=== PATIENT | female | born 1985 | race Caucasian/White ===

== ENCOUNTER 2016-08-01 07:22 | Emergency (ER) | payer MEDICAID ==
[~2016-08-01] VITALS: Ht 175.3 cm; Wt 127.0 kg
[~2016-08-01 07:22] MED LIST: CITA20 PO; EPIP0.3I IM; HYDR25R PR; STOO100C PO
[2016-08-01 07:27] VITALS: BP 132/91; PULSE 96; RESP 18; TEMP 98.5; O2SAT 100
[2016-08-01] MEDS ORDERED: LIDO1PAD52 TOPICAL (07:45)
[2016-08-01] MEDS ORDERED: INHALER (07:45)
[2016-08-01] MEDS ORDERED: CELE20TA PO (07:45)
[2016-08-01] MEDS ORDERED: KETOROLAC TROMETHAMINE 60 MG/2 ML (IM) VIAL IM ONE (07:45)
[2016-08-01] MEDS ORDERED: HYDR-3533 PO (07:46)
--- NOTE | 2016-08-01 07:53 | PD ---
HPI Chief Complaint: Back/ Neck Pain or Injury Time Seen by Provider: 07:32 Travel History International Travel<30 days: No Contact w/Intl Traveler<30days: No Traveled to known affect area: No History of Present Illness HPI 31 year-old female notes left sided mid back pain that is been present over the past couple of days. She states she has history of low back pain and has had MRIs in the past. Quality of pain is cramping. Severity is severe per patient. She states her primary care physician has worked on getting her in for possible surgery but she has had issues with her insurance. She states that she has not had any recent trauma, incontinence, weakness, numbness, abdominal pain or other emergent symptoms. She states her last menstrual cycle was at the beginning of the month and she is overdue for a Depo-Provera shot. She states that pain is worse with movement. She denies other modifying factors. She states that this is higher than her usual pain. PFSH Past Medical History Asthma: Yes Bipolar Disorder: Yes Anxiety: Yes Depression: Yes Cardiovascular Problems: Yes (HTN) Diabetes: No Diminished Hearing: Yes (left ear) GERD: Yes Gout: No Hypertension: Yes Musculoskeletal: Yes (CHRONIC BACK PAIN) Immunizations Current: Yes Migraines: Yes Tetanus Vaccination: < 5 Years Influenza Vaccination: No ?: Unknown : 6 Para: 1 Miscarriage: 3 : 2 Ovarian Cysts: Yes Past Surgical History Section: Yes Social History Alcohol Use: No Tobacco Use: Yes (/ PPD) Substance Use: Yes (MARIJUANA DAILY) Allergies-Medications (Allergen,Severity, Reaction): Coded Allergies: Azithromycin (Verified Allergy, Severe, throat swelling, 08/01/16) Codeine (Verified Allergy, Severe, Hives, 08/01/16) Percocet (Verified Allergy, Severe, Hives, 08/01/16) Tramadol (Verified Allergy, Severe, GETS VIOLENT, 08/01/16) Penicillin (Verified Adverse Reaction, Severe, NOSE BLEEDS, 08/01/16) Flynn (Verified Adverse Reaction, Mild, GI UPSET, 08/01/16) Reported Meds & Prescriptions Reported Meds & Active Scripts Active Skelaxin (Metaxalone) 800 Mg Tab 800 Mg PO HS PRN Reported Lortab (Hydrocodone-Acetaminophen) 5-325 Mg Tab Unknown Dose PO DIRECTED PRN [Inhaler] Lidocaine Patch 12 HR (Lidocaine) 5 % Patch 1 Patch TOPICAL DAILY PRN Remove patch after 12 hours Celexa (Citalopram Hydrobromide) 20 Mg Tab 20 Mg PO DAILY Review of Systems Except as stated in HPI: all other systems reviewed are Neg Physical Exam Narrative GENERAL: Well-nourished, well-developed patient. Uncomfortable SKIN: Warm and dry. HEAD: Normocephalic and atraumatic. EYES: No injection or drainage. ENT: No nasal drainage noted. NECK: Supple, trachea midline. CARDIOVASCULAR: Regular rate and rhythm RESPIRATORY: Breath sounds equal bilaterally. No accessory muscle use. GASTROINTESTINAL: Abdomen soft, non-tender, nondistended. EXTREMITIES: No edema. BACK: Nontender without obvious deformity in midline, no CVA tenderness, left sided lumbar paraspinal tenderness. NEUROLOGICAL: Awake and alert. Motor and sensory grossly within normal limits. Normal speech. Data Data Last Documented VS Vital Signs Date Time Temp Pulse Resp B/P Pulse Ox O2 Delivery O2 Flow Rate FiO2 08/01/16 07:43 08/01/16 07:27 98.5 96 18 100 Room Air Orders Urinalysis - C+S If Indicated (08/01/16 07:37) Ed Urine Pregnancytest Poc (08/01/16 07:37) Ketorolac Inj (Toradol Inj) (08/01/16 07:45) Orphenadrine Inj (Norflex Inj) (08/01/16 08:30) Labs Laboratory Tests Test 08/01/16 07:50 Urine Collection Type CLEAN CATCH Urine Color YELLOW Urine Turbidity CLOUDY Urine pH 6.0 Urine Specific [place] 1.023 Urine Protein TRACE mg/dL Urine Glucose (UA) NEG mg/dL Urine Ketones TRACE mg/dL Urine Occult Blood TRACE Urine Nitrite NEG Urine Bilirubin NEG Urine Leukocyte Esterase TRACE Urine RBC 0-3 /hpf Urine WBC 0-2 /hpf Urine Squamous Epithelial 0-5 /hpf Cells Urine Amorphous Sediment FEW Microscopic Urinalysis Comment CULT NOT INDICATED MDM Medical Decision Making Medical Screen Exam Complete: Yes Emergency Medical Condition: Yes Medical Record Reviewed: Yes (past history confirmed) Interpretation(s) UA without UTI, test negative Differential Diagnosis Strain, UTI, cyst, , stone Narrative Course Will check urinalysis, beta and dose with Toradol and reevaluate; patient agrees to workup as ordered ED workup without emergent process, patient with mild relief will dose with Norflex, Patient denies any new complaints, all questions answered. Patient knows that follow up is incumbent on them and to return to the emergency room immediately if new or worsening symptoms develop. Patient given strict return precautions, vitals reviewed and are normal, agrees to further workup as an outpatient. Diagnosis Primary Impression: Back pain Qualified Code: M54.5 - Acute left-sided low back pain without sciatica Patient Instructions: General Instructions Additional Instructions: Return as stated, alternate Motrin and Tylenol with muscle relaxant, follow with primary this week Med/Other Pt SpecificInfo: Prescription(s) given Scripts Metaxalone (Skelaxin)800 Mg Poq905 Mg PO HS PRN (PAIN SCALE 1 TO 10) #10 TAB Prov:Sindhu Batista MD 08/01/16 Disposition: 01 DISCHARGE HOME Condition: Stable Sindhu Batista MD Aug 01, 2016 07:53
[2016-08-01 08:00] LABS: BLOOD, URINE TRACE (NEG); GLUCOSE,URINE NEG (NEG); KETONE, URINE TRACE mg/dL (NEG); NITRITE,URINE NEG (NEG)
[2016-08-01 08:01] LABS: METHOD OF COLLECTION CLEAN CATCH; URINE COLOR YELLOW (YELLW/STRAW)
[2016-08-01 08:05] LABS: RBC, URINE 0-3 /hpf (0-3); SQUAMOUS EPITHELIAL CELL URINE 0-5 /hpf (0-5); WBC, URINE 0-2 /hpf (0-5)
[2016-08-01 08:06] LABS: COMMENT (UR) CULT NOT INDICATED; COMMENT2 (UR) MUCOUS PRESENT; CULTURE IF INDICATED CULT NOT INDICATED
[2016-08-01] MEDS ORDERED: META800T81 PO (08:18)
[2016-08-01] MEDS ORDERED: ORPHENADRINE INJ 60 MG/2 ML AMP IM ONE (08:30)
== END 2016-08-01 09:02 | disposition home or self-care (01) ==
LOC: PHED 07:22
DX: M54.5 Low back pain (principal); J45.909 Unspecified asthma, uncomplicated; I10 Essential (primary) hypertension; K21.9 Gastro-esophageal reflux disease without esophagitis; F17.210 Nicotine dependence, cigarettes, uncomplicated
CPT/HCPCS: 81001; 84703; 96372; 99283; J1885; J2360

== ENCOUNTER 2017-02-06 09:32 | Emergency (ER) | payer MEDICAID ==
[~2017-02-06 09:32] MED LIST changes: +CELE20TA PO; -CITA20 PO; -EPIP0.3I IM; +HYDR-3533 PO; -HYDR25R PR; +INHALER; +LIDO1PAD52 TOPICAL; +META800T81 PO; -STOO100C PO
[2017-02-06 09:43] VITALS: BP 129/68; PULSE 86; RESP 15; TEMP 98.4; O2SAT 98
[2017-02-06] MEDS ORDERED: ZOFR4TAB3 SL ×2 (10:13→10:14)
--- NOTE | 2017-02-06 10:13 | PD ---
HPI Chief Complaint: GI Complaint Time Seen by Provider: 10:05 Travel History International Travel<30 days: No Contact w/Intl Traveler<30days: No Traveled to known affect area: No History of Present Illness HPI This 32-year-old female complaining of occasional vomiting and diarrhea. This been going on for about a week. She has had C. difficile in the past. Her son right now has a similar illness. She also cut the back of her heel last night. She applied dilute to the wound. PFSH Past Medical History Asthma: Yes Bipolar Disorder: Yes Anxiety: Yes Depression: Yes Cardiovascular Problems: Yes (HTN) Diabetes: No Diminished Hearing: Yes (left ear) GERD: Yes Gout: No Hypertension: Yes Musculoskeletal: Yes (CHRONIC BACK PAIN) Immunizations Current: Yes Migraines: Yes ?: Not : 6 Para: 1 Miscarriage: 3 : 2 Ovarian Cysts: Yes Past Surgical History Section: Yes Social History Alcohol Use: No Tobacco Use: Yes (1/2 PPD) Substance Use: Yes (MARIJUANA DAILY) Allergies-Medications (Allergen,Severity, Reaction): Coded Allergies: azithromycin (Unverified Allergy, Severe, throat swelling, 02/06/17) codeine (Unverified Allergy, Severe, Hives, 02/06/17) oxycodone (Unverified Allergy, Severe, Hives, 02/06/17) tramadol (Unverified Allergy, Severe, GETS VIOLENT, 02/06/17) acetaminophen (Unverified Allergy, Mild, Hives, 02/06/17) DENIES penicillin G (Unverified Adverse Reaction, Severe, NOSE BLEEDS, 02/06/17) hydrocodone (Unverified Adverse Reaction, Mild, GI UPSET, 02/06/17) Reported Meds & Prescriptions Reported Meds & Active Scripts Active Skelaxin (Metaxalone) 800 Mg Tab 800 Mg PO HS PRN Reported Lortab (Hydrocodone-Acetaminophen) 5-325 Mg Tab Unknown Dose PO DIRECTED PRN [Inhaler] Lidocaine Patch 12 HR (Lidocaine) 5 % Patch 1 Patch TOPICAL DAILY PRN Remove patch after 12 hours Celexa (Citalopram Hydrobromide) 20 Mg Tab 20 Mg PO DAILY Review of Systems General / Constitutional: No: Fever, Chills Eyes: No: Diploplia HENT: No: Headaches Cardiovascular: No: Chest Pain or Discomfort Respiratory: No: Cough Gastrointestinal: Positive: Nausea, Diarrhea Genitourinary: No: Urgency, Frequency Skin: No Rash Neurologic: No: Weakness Hematologic/Lymphatic: No: Easy Bruising Physical Exam Narrative GENERAL: Well-developed female SKIN: Focused skin assessment warm/dry. HEAD: Atraumatic. Normocephalic. EYES: Pupils equal and round. No scleral icterus. No injection or drainage. ENT: No nasal bleeding or discharge. Mucous membranes pink and moist. NECK: Trachea midline. No JVD. CARDIOVASCULAR: Regular rate and rhythm. No murmur appreciated. RESPIRATORY: No accessory muscle use. Clear to auscultation. Breath sounds equal bilaterally. GASTROINTESTINAL: Abdomen soft, non-tender, nondistended. Hepatic and splenic margins not palpable. MUSCULOSKELETAL: No obvious deformities. No clubbing. No cyanosis. No edema. There is a 1 cm laceration of the posterior ankle overlying the Achilles tendon. She has good strength in plantar and dorsiflexion. Caldwell's test is normal NEUROLOGICAL: Awake and alert. No obvious cranial nerve deficits. Motor grossly within normal limits. Normal speech. PSYCHIATRIC: Appropriate mood and affect; insight and judgment normal. Data Data Last Documented VS Vital Signs Date Time Temp Pulse Resp B/P (MAP) Pulse Ox O2 Delivery O2 Flow Rate FiO2 02/06/17 09:43 98.4 86 15 129/68 (88) 98 Orders Orders Tetanus/Diphtheria Tox Adult (Tetanus/Di (02/06/17 10:15) MDM Medical Decision Making Medical Screen Exam Complete: Yes Emergency Medical Condition: Yes Medical Record Reviewed: Yes Differential Diagnosis Differential includes C. difficile, gastroenteritis, laceration leg Narrative Course I have offered to test for C. difficile the patient is unable to produce stool at this time. She does have a follow-up coming up with her doctor. I will prescribe Zofran. She needs tetanus shot for her laceration. The laceration otherwise is healing well and I don't see evidence of tendon injury Diagnosis Primary Impression: Gastroenteritis Additional Impression: Laceration of left ankle Qualified Codes: S91.012A - Laceration without foreign body, left ankle, initial encounter Scripts Ondansetron Odt (Zofran Odt) 4 Mg Tab 4 MG SL Q6HR Y for Nausea/Vomiting, #10 TAB 0 Refills Prov: Gio Stanford MD 02/06/17 Disposition: 01 DISCHARGE HOME Condition: Stable Gio Stanford MD Feb 06, 2017 10:13
[2017-02-06] MEDS ORDERED: TETANUS/DIPHTHERIA TOXOID ADULT 0.5 ML VIAL IM ONE (10:15)
[2017-02-06] MEDS ORDERED: SKEL800T21 PO (10:35)
== END 2017-02-06 11:15 | disposition home or self-care (01) ==
LOC: PHED 09:32
DX: K52.9 Noninfective gastroenteritis and colitis, unspecified (principal); S91.012A Laceration without foreign body, left ankle, initial encounter; W45.8XXA Other foreign body or object entering through skin, initial encounter; Z23 Encounter for immunization
CPT/HCPCS: 90471; 90714